=== PATIENT | male | born 1995 | race Caucasian/White ===

== ENCOUNTER 2017-06-17 19:00 | Emergency (ER) | payer MEDICAID, OTHER ==
[2017-06-17] MEDS: morphine 2 MG INJ IV (21:00)
[2017-06-17] MEDS: ONDANSETRON 4 MG INJ IV (21:00)
[2017-06-17 21:47] LABS: ANION GAP 14 (8-16); BLOOD UREA NITROGEN 11 mg/dl (7-20); CALCIUM 9.3 mg/dl (8.4-10.2); CARBON DIOXIDE 26 mmol/L (21-31); CHLORIDE 102 mmol/L (97-110); CREATININE 0.69 mg/dl (0.61-1.24); GLUCOSE 93 mg/dl (70-220); POTASSIUM 3.6 mmol/L (3.5-5.1); SODIUM 138 mmol/L (135-144)
[2017-06-17] MEDS: SOD CHLORIDE 0.9% 100 ML (22:33)
[2017-06-17] MEDS: IOHEXOL 300MG/ML 150 ML BTL (22:34)
== END 2017-06-17 23:30 | disposition home or self-care (01) ==
LOC: FTE 19:00
DX: S39.81XA Other specified injuries of abdomen, initial encounter (principal); S20.212A Contusion of left front wall of thorax, initial encounter; Y08.89XA Assault by other specified means, initial encounter
CPT/HCPCS: 36415; 71045; 73130-LT; 74177; 80048; 96374; 96375; 99285-25